=== PATIENT | female | born 1940 | race African-American/Black ===

== ENCOUNTER 2017-03-29 12:09 | Outpatient (CLI) | payer MEDICARE, MEDICAID ==
[~2017-03-29 12:09] MED LIST: Iopamidol 370 76% 100 ML VIAL ONE
[2017-03-29 12:35] LABS: Estimated GFR-MDRD - POC Greater than 90
--- NOTE | 2017-03-29 14:02 | CT ---
CT THORAX WITH IV CONTRAST: 03/29/2017 HISTORY: Lung cancer, post chemotherapy and radiation. Follow-up evaluation. COMPARISON: 06/07/[address] examination from 09/07/2016. FINDINGS: There has been interval placement of a right subclavian Mediport catheter, with the tip in the distal SVC. Vascular calcification is seen in the coronary arteries and, to a lesser extent, involving the thorac ic and visualized upper abdominal aorta. There is no evidence of lymphadenopathy. There has been interval decrease in size of the left upper lobe mass with previous measurement on PET CT examination 4 cm x 3.6 cm, and on today's examination this measures 2.2 cm x 1.4 cm. There is co nsolidation in the region of the lingula, but the degree of this consolidation has improved from prio r PET CT examination. No additional pulmonary nodule or mass is seen. Mild emphysematous changes are seen within the lungs, predominantly in the upper lobes. The previously noted mildly enlarged prevascular space lymph node has diminished in size, previously measuring 14 mm in greatest dimension, and on today's examination measures 6 mm. The previously desc ribed enlarged left paratracheal lymph node measuring 1.6 cm on the prior exam now measures approxima tely 9 mm in maximal dimensions. Again, no enlarged lymph nodes are seen on this exam. The visualized upper abdomen demonstrates no enlarged lymph nodes. There is stable mild thickening o f each adrenal gland, probably related to adrenal hyperplasia. Degenerative changes are seen in the spine with remote anterior right-sided rib fractures again prese nt. No other interval change. IMPRESSION: 1. Interval decrease in size of left upper lobe mass, likely related to interval treatment. Consoli dation in the region of the lingula has also improved. Linear scarring is now seen within the left u pper lobe. 2. No new pulmonary nodule or mass is seen in the lungs bilaterally. 3. No evidence of lymphadenopathy, with decrease in size of mediastinal lymphadenopathy. 4. Chronic obstructive pulmonary disease. POS: [facility]
== END 2017-03-29 12:10 | disposition home or self-care (01) ==
LOC: CT 12:09
PROVIDERS: ATTEND Radiology Radiation Oncology
DX: C34.12 Malignant neoplasm of upper lobe, left bronchus or lung (principal); J44.9 Chronic obstructive pulmonary disease, unspecified
CPT/HCPCS: 71260; 82565

== ENCOUNTER 2019-05-04 10:11 | Outpatient (CLI) | payer MEDICARE ==
--- NOTE | 2019-05-04 14:06 | PET ---
PET CT: HISTORY: A 78-year-old female with malignant neoplasm of upper lobe, left bronchus, or lung. Exam requested f or restaging and subsequent treatment. The patient's last chemotherapy was on 11/29/2016. There is a lso a history of a new mass in the upper quadrant of the right breast. COMPARISON: PET CT of 09/07/2016. CORRELATION: CT chest of 03/29/2017. FINDINGS: There is a 3.5 cm peripheral right upper lobe lung mass with increased FDG localization and an SUV of 12. There are multiple hypermetabolic lymph nodes including the right supraclavicular (SUV 9.7), other ri ght-sided cervical lymph nodes (SUV 8.3), right axillary lymph nodes (SUV 14.1), left superior medias tinum (SUV 5.2), and right paratracheal lymph nodes (SUV 11.3). No hypermetabolic left pulmonary nodule, liver, adrenal, or skeletal lesions are seen. There is physiologic activity in the GI and tracts, heart, and the visualized portions of the brai n. The CT scan used for attenuation correction demonstrates no evidence of pleural effusions or ascites. There is thickening of the skin of the right breast. There is colonic diverticulosis and fibroid u terus. IMPRESSION: Findings are consistent with metastatic disease. POS: [facility]
== END 2019-05-04 10:12 | disposition home or self-care (01) ==
LOC: PET 10:11
PROVIDERS: ATTEND Internal Medicine Medical Oncology
DX: C34.12 Malignant neoplasm of upper lobe, left bronchus or lung (principal)
CPT/HCPCS: 78815; A9552

== ENCOUNTER 2019-05-21 09:17 | Outpatient (CLI) | payer MEDICARE, MEDICAID ==
--- NOTE | 2019-05-21 10:35 | MMO ---
Bilateral MAMMO Bilat Diag [facility]. CLINICAL HISTORY: Patient is 78 years old and is seen for diagnostic exam. The patient has no family history of breast cancer. The patient has a history of right lung cancer in 2017 and is post chemoradiation therapy. VIEWS: The views performed were: bilateral craniocaudal with tomosynthesis; bilateral mediolateral oblique with tomosynthesis; bilateral mediolateral with tomosynthesis; and right mediolateral oblique. This study has been interpreted with the assistance of computer-aided detection. MAMMOGRAM FINDINGS: The breasts are heterogeneously dense, which could obscure a lesion on mammography. There is right skin thickening and relatively increased density on the right compared to the left. this maybe due to XRT but Breast malignancy cannot be excluded since there are no priors for comparison. Punch biopsy of the skin would be helpful. Enlarged lymph nodes are seen in the right axilla. US guided biopsy is recommended. In the left breast, there are no suspicious masses, calcifications or areas of architectural distortion. IMPRESSION: FINDING IN THE RIGHT BREAST IS SUSPICIOUS. BIOPSY IS RECOMMENDED. THE RESULTS OF THIS EXAM WERE SENT TO THE PATIENT. ACR BI-RADS Category 4 - Suspicious abnormality - biopsy should be considered D/W pt and grandaughter in person @ 10:30 am MAMMOGRAPHY NOTE: 1. A negative mammogram report should not delay a biopsy if a dominant of clinically suspicious mass is present. 2. Approximately 10% to 15% of breast cancers are not detected by mammography. 3. Adenosis and dense breasts may obscure an underlying neoplasm. Reported by: ANNABEL GLOVER MD Electonically Signed: [id number]
--- NOTE | 2019-05-21 10:51 | ULT ---
ULTRASOUND SOFT TISSUE OTHER: (RIGHT AXILLA) FINDINGS: Correlation was made with mammograms of same date. Sonographic evaluation of the right axilla demonstrates multiple enlarged lymph nodes, the largest me asuring about 2.2 cm. IMPRESSION: BIRADS category 4 - suspicious abnormality. Ultrasound-guided biopsy is recommended. Discussed in person with the patient and her granddaughter at 10:30 a.m. CODE CR POS: OFF
== END 2019-05-21 09:18 | disposition home or self-care (01) ==
LOC: BICMAMMO 09:17
PROVIDERS: ATTEND Internal Medicine Medical Oncology
DX: N63.11 Unspecified lump in the right breast, upper outer quadrant (principal)
CPT/HCPCS: 76999; 77066; G0279

== ENCOUNTER 2019-05-23 08:19 | Day surgery (SDC) | payer MEDICARE, MEDICAID ==
[2019-05-22 11:04] VITALS: BMI 29.8
[2019-05-23 08:33] LABS: #Eosinphils 0.2 thou/uL (0.0-0.7); #Lymphocytes 1.6 thou/uL (1.20-3.40); #Monocytes 0.5 thou/uL (0.11-0.59); #Neutrophils 3.7 thou/uL (1.40-6.50); %Basophils 0.2 % (0.0-1.0); %Eosinophils 3.2 % (0.0-10.0); %Lymphocytes 26.3 % (21.0-51.0); %Monocytes 8.6 % (0.0-10.0); %Neutrophils 61.6 % (42.0-75.0); Hemoglobin 12.3 g/dL (12.0-16.0); Mean Corpuscular HGB CONC 34.4 g/dL (32.0-36.0); Mean Corpuscular Hemoglobin 34.1 pg (27.0-31.0); Mean Corpuscular Volume 99.3 fL (78.0-98.0); Mean Platelet Volume 6.3 fL (7.4-10.4); Platelet Count 268 thou/uL (130-400); RBC Distribution Width 12.2 % (11.5-14.5)
[2019-05-23 08:38] LABS: PTT 29.3 SEC (22.9-36.1); Prothrombin Time 12.8 SEC (12.0-14.7)
[2019-05-23] MEDS ORDERED: FLU VACC TS2019-20(65YR UP)/PF 180 MCG/0.5 ML SYRINGE IM ONE (09:00)
[2019-05-23] MEDS ORDERED: Sodium Bicarbonate 2.5 MEQ/5 ML VIAL ONE (09:33)
[2019-05-23] MEDS ORDERED: Fentanyl 100 MCG/2 ML VIAL ONE (09:34)
[2019-05-23] MEDS ORDERED: Midazolam HCl 2 mg/2 ml Vial ONE (09:34)
[2019-05-23 10:49] VITALS: BP 137/87; TEMP 98.8
--- NOTE | 2019-05-23 12:00 | RAD ---
Chest 2 views inspiratory expiratory HISTORY: Right lung mass. Biopsy. FINDINGS: Lungs remain well-inflated. Right lung mass and patchy opacity throughout the left lower lo be are stable. Right subclavian Mediport remains in place. IMPRESSION: No evidence of postbiopsy pneumothorax. Patient has performed well clinically and will be discharged.
--- NOTE | 2019-05-23 12:02 | RAD ---
Chest 2 views inspiratory expiratory HISTORY: Right lung mass. Biopsy. FINDINGS: Cardiac silhouette and pulmonary vasculature are unremarkable. Right lung mass and parenchy mal opacity at the left base are stable. Mediastinum is midline with aortic calcification and a right subclavian Port-A-Cath. Lungs are well-inflated. IMPRESSION: No evidence of postbiopsy pneumothorax.
--- NOTE | 2019-05-23 15:24 | CT ---
CT-guided biopsy right upper lobe lung mass. Conscious sedation: At least 30 minutes spent with the patient for conscious sedation. HISTORY: Lung cancer. FINDINGS: After explaining the procedure and answering all questions, limited CT of the chest was per formed. Right upper lobe mass confirmed. Images also partially show fluid around the right subclavian Mediport device. The oval well-circumscribed fluid collection measures up to 4.[address] diameter on the axial images. Sterile technique, buffered local anesthesia, conscious sedation, CT guidance, and a right anterolate ral approach were used to carefully advance the tip of a 19-gauge trocar needle through the posterior margin of the right upper lobe mass, carefully using the pleural abutment of the mass durin g the approach. A total of 5 20-gauge core biopsy specimens were obtained and submitted to Dr. Carrillo from pathology o confirmed specimen adequacy. Needle was removed with no evidence of pneumothorax. Patient tolerated the procedure well and was eventually dismissed in good condition. IMPRESSION: Technically successful CT-guided right upper lobe mass biopsy. Pathology is pending. Tense large fluid collection surrounding the hub of the right subclavian Mediport.
== END 2019-05-23 12:55 | disposition home or self-care (01) ==
LOC: CT 08:19
PROVIDERS: ATTEND Internal Medicine Medical Oncology
PROC: 0BBC3ZX Excision of Right Upper Lung Lobe, Percutaneous Approach, Diagnostic (ICD-10-PCS; principal; 2019-05-23)
DX: C34.11 Malignant neoplasm of upper lobe, right bronchus or lung (principal); F17.210 Nicotine dependence, cigarettes, uncomplicated
CPT/HCPCS: 32405; 36415; 71045; 77012; 85025; 85610; 85730; 88305; 88333; 88334; 88341; 88342; J2250; J3010

== ENCOUNTER 2019-06-26 12:13 | Day surgery (SDC) | payer MEDICARE, MEDICAID ==
[~2019-06-26 12:13] MED LIST changes: -Iopamidol 370 76% 100 ML VIAL ONE; +Pembrolizumab 200 MG in Sodium Chloride 0.9% 250 ML 250 ML IV SCH
[2019-06-26] MEDS ORDERED: Sodium Chloride 0.9% 20 ML ONE (12:58)
== END 2019-06-26 14:47 | disposition home or self-care (01) ==
LOC: ONC/OP 12:13
PROVIDERS: ATTEND Internal Medicine Medical Oncology
DX: Z51.12 Encounter for antineoplastic immunotherapy (principal); C34.12 Malignant neoplasm of upper lobe, left bronchus or lung
CPT/HCPCS: 96413; J7050; J9271

== ENCOUNTER 2019-07-17 10:27 | Outpatient (CLI) | payer MEDICARE, MEDICAID ==
--- NOTE | 2019-07-17 10:46 | RAD ---
EXAM: Chest PA and lateral: HISTORY: Lung cancer. COMPARISON: 11/10/2016 FINDINGS: Heart: Upper normal cardiac silhouette. Aorta: Atherosclerosis and elongation of the aorta Pulmonary vessels: Slightly prominent pulmonary vessels appear Costophrenic angles: Costophrenic angles are clear. Lungs: Hyperinflation. Chronic changes in the left lower lobe. Masslike opacity in the right midlung. Pneumothorax: No pneumothorax Osseous structures: No osseous abnormalities IMPRESSION: 1. COPD 2. Right upper lobe mass. No pneumothorax.
== END 2019-07-17 10:28 | disposition home or self-care (01) ==
LOC: BICRAD 10:27
PROVIDERS: ATTEND Nurse Practitioner Family
DX: C34.12 Malignant neoplasm of upper lobe, left bronchus or lung (principal); J44.9 Chronic obstructive pulmonary disease, unspecified
CPT/HCPCS: 71046

== ENCOUNTER 2019-07-24 10:44 | Day surgery (SDC) | payer MEDICARE, MEDICAID ==
[2019-07-24] MEDS ORDERED: Sodium Chloride 0.9% 20 ML ONE (11:19)
[2019-07-24 12:44] VITALS: BP 129/67; TEMP 98.5
== END 2019-07-24 13:19 | disposition home or self-care (01) ==
LOC: ONC/OP 10:44
PROVIDERS: ATTEND Internal Medicine Hematology & Oncology
DX: Z51.12 Encounter for antineoplastic immunotherapy (principal); C34.12 Malignant neoplasm of upper lobe, left bronchus or lung
CPT/HCPCS: 96413; J7050; J9271

== ENCOUNTER 2019-08-22 07:18 | Day surgery (SDC) | payer MEDICARE, MEDICAID ==
[2019-08-22] MEDS ORDERED: Sodium Chloride 0.9% 20 ML ONE (08:20)
[2019-08-22 08:26] VITALS: BP 128/73; TEMP 98.2
== END 2019-08-22 10:20 | disposition home or self-care (01) ==
LOC: ONC/OP 07:18
PROVIDERS: ATTEND Internal Medicine Hematology & Oncology
DX: Z51.12 Encounter for antineoplastic immunotherapy (principal); C34.12 Malignant neoplasm of upper lobe, left bronchus or lung
CPT/HCPCS: 96413; J7050; J9271

== ENCOUNTER 2019-09-11 10:55 | Day surgery (SDC) | payer MEDICARE, MEDICAID ==
[2019-09-11 13:06] VITALS: BP 127/72; TEMP 98
== END 2019-09-11 13:09 | disposition home or self-care (01) ==
LOC: ONC/OP 10:55
PROVIDERS: ATTEND Internal Medicine Medical Oncology
DX: Z51.12 Encounter for antineoplastic immunotherapy (principal); C34.12 Malignant neoplasm of upper lobe, left bronchus or lung
CPT/HCPCS: 80053; 82248; 83615; 84100; 84436; 84443; 84550; 96413; J7050; J9271

== ENCOUNTER 2019-09-14 12:12 | Outpatient (CLI) | payer MEDICARE, MEDICAID ==
[~2019-09-14 12:12] MED LIST changes: +Iopamidol-370 76% 500 ML 1 ML ONE; -Pembrolizumab 200 MG in Sodium Chloride 0.9% 250 ML 250 ML IV SCH
--- NOTE | 2019-09-14 17:53 | CT ---
EXAM: CHEST CT SCAN WITH IV CONTRAST: 09/14/19 HISTORY: Lung cancer. COMPARISON: PET scan 05/04/19. FINDINGS: The previously noted 2.9 x 3.5 cm diameter mass in the right upper lobe adjacent to the minor fissure has decreased in size and approximates 1.8 x 2.7 cm in size with some associated linear scarring or subsegmental atelectasis. A previously noted area of increased density involving the posterior major fissure between the right middle lobe and right lower lobe is stable. In the left upper lobe, there i s progression in size of patchy somewhat pleural based parenchymal process extending from the anterol ateral chest wall towards the hilum. This mass previously measured approximately 1.6 x 2.6 cm and now measures approximately 2.6 x 3.4 cm. The previously noted 0.8 cm pleural based nodule in the left up per lobe which measured 0.8 cm in diameter now measures approximately 0.8 x 1.0 cm. There is a small left pleural effusion which is new. In addition, there is some patchy alveolar parenchymal changes in the left lower lobe, nonspecific including inflammatory or infectious or subsegmental atelectasis wh ich is also new from the prior study. No new mediastinal mass or adenopathy. No right sided pleural e ffusion. IMPRESSION: Decrease in the size of the previously noted right upper lobe mass. Increase in size of the left upper lobe mass which is poorly circumscribed and extends from the left chest wall towards the left hilum. Minimal increase in size in a pleural based nodule in the left upper lobe. Newly developed left pleural effusion and minimal alveolar appearing parenchymal changes in the left lower lobe, nonspecific. Other findings appear stable. POS: [facility]
== END 2019-09-14 12:13 | disposition home or self-care (01) ==
LOC: BICCT 12:12
PROVIDERS: ATTEND Internal Medicine Medical Oncology
DX: C34.12 Malignant neoplasm of upper lobe, left bronchus or lung (principal); R91.8 Other nonspecific abnormal finding of lung field; R91.1 Solitary pulmonary nodule; J90 Pleural effusion, not elsewhere classified
CPT/HCPCS: 71260; Q9967

== ENCOUNTER 2019-10-02 14:07 | Day surgery (SDC) | payer MEDICARE, MEDICAID ==
[~2019-10-02 14:07] MED LIST changes: -Iopamidol-370 76% 500 ML 1 ML ONE; +Pembrolizumab 200 MG in Sodium Chloride 0.9% 250 ML 250 ML IV SCH
== END 2019-10-02 15:06 | disposition home or self-care (01) ==
LOC: ONC/OP 14:07
PROVIDERS: ATTEND Internal Medicine Medical Oncology
DX: Z51.12 Encounter for antineoplastic immunotherapy (principal); C34.12 Malignant neoplasm of upper lobe, left bronchus or lung
CPT/HCPCS: 96413; J7050; J9271

== ENCOUNTER 2019-10-23 11:45 | Day surgery (SDC) | payer MEDICARE, MEDICAID ==
[2019-10-23] MEDS ORDERED: Sodium Chloride 0.9% 20 ML ONE (11:50)
[2019-10-23 12:51] VITALS: BP 149/74; TEMP 97.4
== END 2019-10-23 12:52 | disposition home or self-care (01) ==
LOC: ONC/OP 11:45
PROVIDERS: ATTEND Internal Medicine Medical Oncology
DX: Z51.12 Encounter for antineoplastic immunotherapy (principal); C34.12 Malignant neoplasm of upper lobe, left bronchus or lung
CPT/HCPCS: 96413; J7050; J9271

== ENCOUNTER 2019-11-15 11:43 | Day surgery (SDC) | payer MEDICARE, MEDICAID ==
[2019-11-15 12:36] VITALS: BP 160/84; TEMP 98.6
== END 2019-11-15 14:02 | disposition home or self-care (01) ==
LOC: ONC/OP 11:43
PROVIDERS: ATTEND Internal Medicine Medical Oncology
DX: Z51.12 Encounter for antineoplastic immunotherapy (principal); C34.12 Malignant neoplasm of upper lobe, left bronchus or lung
CPT/HCPCS: 96413; J7050; J9271

== ENCOUNTER 2019-12-04 09:58 | Outpatient (CLI) | payer MEDICARE, MEDICAID ==
--- NOTE | 2019-12-04 13:16 | CT ---
CT CHEST WITHOUT CONTRAST CLINICAL INDICATION: Follow-up lung cancer. History of prior chemotherapy and radiation. COMPARISON: CT thorax on 09/14/2019 and PET/CT scan exam on 05/04/2019 FINDINGS: Aorta: Prominent vascular calcifications are seen in the thoracic and visualized upper abdominal aort a with prominent vascular calcification seen in the coronary arteries. Lungs: As noted on prior recent examination, the right upper lobe mass has decreased in size with an irregular area of parenchymal density now present with adjacent linear densities. Findings could be related to post treatment changes and decrease in size of this mass is scarring. There are air bronch ograms now present in region of this masslike density. Previously described pleural-based nodular density along the right major fissure which appears to be in the region of the right middle lobe now demonstrates a more spiculated appearance as compared to prior exam. This measures 5 mm x 9 mm. Parenchymal opacity within the lingula is again seen and not significantly changed in size measuring 3.4 cm x 2.3 cm on today's exam with previous measurements of 3.4 cm x 2.6 cm. Differences in size are likely due to slice selection. However, this parenchymal density is more prominent when compared to PET/CT exam on 05/04/2019. The pleural-based nodular density along the superior aspect of the left major fissure is again seen and is smaller in size previously measuring 10 mm x 7 mm, and now me asures 8 mm x 6 mm. There has been interval development of a plaque-like nodular area of pleural thickening involving the posterior lower left lung zone with smaller area of plaque-like nodular thickening more posterior and inferior left lower lung zone. The nodular area of plaque-like thickening slightly more superior in the lower lung zone measures 5 cm craniocaudal x0.9 cm AP x1.7 cm transverse with the smaller area of nodular pleural thickening more inferiorly measuring approximately 0.8 cm in greatest transve rse dimension. There has been interval development of a masslike parenchymal density in the posterior inferior right lower lobe measuring 3.7 cm x 2.8 cm. Findings could be related to interval development of focal area of pneumonia as there are air bronchograms present. However, newly developed neoplastic process/ metastatic lesion is a possibility. Additional adjacent linear densities are also seen in this region. The previously seen small left pleural effusion has resolved. Patchy parenchymal densities left lung base have also resolved. Mediastinum: Nonspecific nonenlarged lymph nodes are seen. Largest pretracheal lymph node measures 1 cm in short axis dimension. Osseous structures: No suspicious lytic or sclerotic osseous lesion is identified. Degenerative bishop es are seen in the spine. Chest wall: There has been interval enlargement of a superior right breast mass compared to the recen t exam on 09/14/2019. This mass previously measured 2.1 cm x 1.3 cm and now measures 2.7 cm x 2.5 cm. Again noted is the skin thickening and increased infiltrative process involving the right breast. The re does appear to be less inflammatory stranding and edema involving the right breast compared to prior exam. Upper abdomen: Small hiatal hernia is present. No enlarged lymph nodes are seen in the upper abdomen. There is stable prominent thickening of each a drenal gland. IMPRESSION: 1. Interval development of masslike nodular areas of pleural thickening in the left lower lung zone w orrisome for metastatic process. 2. Interval development of a masslike area of parenchymal density right lower lobe. This could be rel ated to interval development of focal area of pneumonia. However, neoplastic process would be difficult to exclude. Follow-up evaluation is recommended to ensure resolution. Correlation for findi ngs of pneumonitis are also recommended. 3. Previously described opacities in the upper lobes bilaterally have not significantly changed when compared to prior study. Findings may be related to post treatment changes. Discrete masslike configuration is not seen, and findings are similar to prior study. 4. Pleural-based nodular densities along each major fissure are again seen each of which does appear slightly smaller in size; although, the nodular pleural-based density along the inferior right major fissure has a more spiculated appearance. 5. Interval enlargement of superior right breast mass. 6. Improvement in inflammatory changes and edema involving the right breast. Persistent skin thickeni ng right breast is again seen. The prominent right axillary lymph nodes are also slightly smaller in size.
== END 2019-12-04 09:59 | disposition home or self-care (01) ==
LOC: BICCT 09:58
PROVIDERS: ATTEND Internal Medicine Medical Oncology
DX: C34.12 Malignant neoplasm of upper lobe, left bronchus or lung (principal); J98.4 Other disorders of lung; R91.8 Other nonspecific abnormal finding of lung field; N63.10 Unspecified lump in the right breast, unspecified quadrant; N64.59 Other signs and symptoms in breast
CPT/HCPCS: 71250; 80053; 82248; 83615; 84100; 84436; 84443; 84550

== ENCOUNTER 2020-12-06 01:10 | Inpatient (IN) | payer MEDICARE, MEDICAID ==
[2020-12-06] MEDS ORDERED: Acetaminophen 650 MG Suppository PR PRN (08:11)
[2020-12-06] MEDS ORDERED: Ondansetron ODT 4 MG TAB PO PRN (08:11)
[2020-12-06] MEDS ORDERED: CEFEPIME HCL IN DEXTROSE 5 % 1 GM/50 ML BAG IVPB SCH (09:00)
[2020-12-06] MEDS: Cefepime 2 GM in Sodium Chloride 0.9% 100 ML IVPB SCH ×2 (09:52→20:29)
[2020-12-06 10:00] LABS: Anion Gap 12 mmol/L (10-20); BUN (Urea Nitrogen) 22 mg/dL (9.8-20.1); Calc. Creatinine Clearance 0 mL/min (70-130); Calcium 7.6 mg/dL (7.8-10.44); Carbon Dioxide 20 mmol/L (23-31); Chloride 112 mmol/L (98-107); Glucose 103 mg/dL (83-110); Potassium 3.9 mmol/L (3.5-5.1); Sodium 140 mmol/L (136-145)
[2020-12-06 10:01] LABS: Hemoglobin 8.1 g/dL (12.0-16.0); Mean Corpuscular HGB CONC 31.3 g/dL (32.0-36.0); Mean Corpuscular Hemoglobin 29.1 pg (27.0-31.0); Mean Corpuscular Volume 93.1 fL (78.0-98.0); Mean Platelet Volume 7.3 fL (7.4-10.4); Platelet Count 213 thou/uL (130-400); RBC Distribution Width 17.4 % (11.5-14.5); Red Blood Cell (RBC) Count 2.79 mill/uL (4.20-5.40); White Blood Cell (WBC) Count 17.7 thou/uL (4.8-10.8)
[2020-12-06 10:02] LABS: #Lymphocytes 0.8 thou/uL (1.20-3.40); %Basophils 0.2 % (0.0-1.0); %Eosinophils 0.2 % (0.0-10.0); %Lymphocytes 4.6 % (21.0-51.0)
[2020-12-06 10:03] LABS: #Monocytes 0.9 thou/uL (0.11-0.59); INR-International Normal Ratio 1.2; PTT 74.1 sec (22.9-36.1); Prothrombin Time 15.2 sec (12.0-14.7)
[2020-12-06] MEDS: Vancomycin 1.5 GRAM/300 ML BAG 1.5 GM in Premix Bag 1 BAG IVPB SCH ×2 (13:06→21:34)
[2020-12-06] MEDS: Pantoprazole 40 MG VIAL IVP SCH (20:30)
[2020-12-06] MEDS: Ondansetron PF 4 MG/2 ML Vial IVP PRN (20:45)
[2020-12-06 23:52] LABS: SARS-CoV-2 NAA Rapid Test Not Detected (NotDetected)
[2020-12-07] MEDS: Ondansetron PF 4 MG/2 ML Vial IVP PRN ×2 (08:08→21:48)
[2020-12-07] MEDS: Pantoprazole 40 MG VIAL IVP SCH ×2 (08:20→21:43)
[2020-12-07] MEDS: Cefepime 2 GM in Sodium Chloride 0.9% 100 ML IVPB SCH ×2 (08:20→21:43)
[2020-12-07 08:25] LABS: Hemoglobin 8.7 g/dL (12.0-16.0); Mean Corpuscular HGB CONC 31.9 g/dL (32.0-36.0); Mean Corpuscular Volume 93.9 fL (78.0-98.0); RBC Distribution Width 16.8 % (11.5-14.5); Red Blood Cell (RBC) Count 2.89 mill/uL (4.20-5.40)
[2020-12-07 08:35] LABS: Anion Gap 16 mmol/L (10-20); BUN (Urea Nitrogen) 25 mg/dL (9.8-20.1); Calc. Creatinine Clearance 45 mL/min (70-130); Calcium 8.1 mg/dL (7.8-10.44); Carbon Dioxide 18 mmol/L (23-31); Chloride 114 mmol/L (98-107); Glucose 83 mg/dL (83-110); Potassium 3.7 mmol/L (3.5-5.1); Sodium 144 mmol/L (136-145)
[2020-12-07] MEDS: Vancomycin 1.5 GRAM/300 ML BAG 1.5 GM in Premix Bag 1 BAG IVPB SCH ×2 (09:21→21:56)
[2020-12-07] MEDS ORDERED: Fentanyl 100 MCG/2 ML VIAL ONE (10:21)
[2020-12-07] MEDS ORDERED: Lidocaine 1% PF 5 ML VIAL ONE (10:39)
[2020-12-07] MEDS ORDERED: PROPOFOL 200 MG/20 ML VIAL ONE (10:39)
[2020-12-07 11:03] LABS: Anisocytosis SLIGHT = 6-15 cells (100X) (0-5/hpf); Band 4 % (5-11); Lymphocytes 3 % (21-51); MDiff Complete? YES; Mean Platelet Volume 7.7 fL (7.4-10.4); Monocytes 3 % (0-10); Neutrophil 90 % (42-75); Platelet Count 226 thou/uL (130-400); Platelet Morphology Comment Appears Adequate; Polychromasia SLIGHT = 2-3 cells (100X) (0-2/hpf); Vacuoles SLIGHT; White Blood Cell (WBC) Count 23.5 thou/uL (4.8-10.8)
[2020-12-07] MEDS ORDERED: Promethazine HCl 25 MG/ML VIAL IM PRN (11:10)
[2020-12-07] MEDS ORDERED: Promethazine HCl 25 MG/ML VIAL IVPB PRN (11:10)
[2020-12-07] MEDS ORDERED: Ondansetron HCl/PF 4 MG/2 ML Vial IVP PRN (11:10)
[2020-12-07] MEDS: Acetaminophen 325 MG TAB PO PRN (21:46)
[2020-12-07 21:47] LABS: Vancomycin, Trough 47.5 ug/mL
[2020-12-07] MEDS ORDERED: Vancomycin HCl 500 MG in Sodium Chloride 0.9% 100 ML IVPB SCH (22:30)
[2020-12-08 04:01] LABS: #Monocytes 0.7 thou/uL (0.11-0.59); #Neutrophils 19.5 thou/uL (1.40-6.50); %Eosinophils 0.1 % (0.0-10.0); %Lymphocytes 4.6 % (21.0-51.0); %Monocytes 3.3 % (0.0-10.0); %Neutrophils 92.1 % (42.0-75.0); Hemoglobin 8.4 g/dL (12.0-16.0); Mean Corpuscular HGB CONC 32.4 g/dL (32.0-36.0); Mean Corpuscular Hemoglobin 30.6 pg (27.0-31.0); Mean Corpuscular Volume 94.6 fL (78.0-98.0); Mean Platelet Volume 7.5 fL (7.4-10.4); Platelet Count 213 thou/uL (130-400); Red Blood Cell (RBC) Count 2.74 mill/uL (4.20-5.40); White Blood Cell (WBC) Count 21.2 thou/uL (4.8-10.8)
[2020-12-08 04:23] LABS: Anion Gap 15 mmol/L (10-20); BUN (Urea Nitrogen) 27 mg/dL (9.8-20.1); Calc. Creatinine Clearance 41 mL/min (70-130); Calcium 8.1 mg/dL (7.8-10.44); Carbon Dioxide 16 mmol/L (23-31); Chloride 117 mmol/L (98-107); Glucose 74 mg/dL (83-110); Potassium 3.5 mmol/L (3.5-5.1); Sodium 144 mmol/L (136-145)
[2020-12-08] MEDS: Pantoprazole 40 MG VIAL IVP SCH ×2 (09:33→20:04)
[2020-12-08] MEDS: Cefepime 2 GM in Sodium Chloride 0.9% 100 ML IVPB SCH ×2 (09:33→20:04)
[2020-12-08] MEDS ORDERED: Sodium Bicarbonate 150 MEQ in Dextrose 5% in Water 1,000 ML IV SCH (10:00)
[2020-12-08] MEDS: Acetaminophen 325 MG TAB PO PRN (12:39)
[2020-12-09] MEDS: Acetaminophen 325 MG TAB PO PRN (03:11)
[2020-12-09] MEDS: Ondansetron PF 4 MG/2 ML Vial IVP PRN (03:17)
[2020-12-09 04:22] LABS: #Monocytes 0.8 thou/uL (0.11-0.59); %Basophils 0.1 % (0.0-1.0); %Eosinophils 0.1 % (0.0-10.0); %Lymphocytes 4.3 % (21.0-51.0); %Monocytes 3.4 % (0.0-10.0); %Neutrophils 92.1 % (42.0-75.0); Anion Gap 18 mmol/L (10-20); BUN (Urea Nitrogen) 29 mg/dL (9.8-20.1); Calc. Creatinine Clearance 42 mL/min (70-130); Calcium 8.4 mg/dL (7.8-10.44); Carbon Dioxide 14 mmol/L (23-31); Chloride 114 mmol/L (98-107); Glucose 84 mg/dL (83-110); Hemoglobin 9.7 g/dL (12.0-16.0); Mean Corpuscular HGB CONC 31.1 g/dL (32.0-36.0); Mean Corpuscular Hemoglobin 29.6 pg (27.0-31.0); Mean Corpuscular Volume 95.4 fL (78.0-98.0); Mean Platelet Volume 7.7 fL (7.4-10.4); Platelet Count 200 thou/uL (130-400); Potassium 3.2 mmol/L (3.5-5.1); RBC Distribution Width 16.7 % (11.5-14.5); Red Blood Cell (RBC) Count 3.28 mill/uL (4.20-5.40); Sodium 143 mmol/L (136-145); White Blood Cell (WBC) Count 23.8 thou/uL (4.8-10.8)
[2020-12-09] MEDS ORDERED: Potassium Chloride 20 MEQ TAB PO SCH (08:45)
[2020-12-09] MEDS: Cefepime 2 GM in Sodium Chloride 0.9% 100 ML IVPB SCH ×2 (09:19→20:06)
[2020-12-09] MEDS: Pantoprazole 40 MG VIAL IVP SCH ×2 (09:20→20:06)
[2020-12-09] MEDS: Sodium Bicarbonate 150 MEQ in Dextrose 5% in Water 1,000 ML IV SCH (09:21)
[2020-12-09 09:47] LABS: Vancomycin, Random 34.4 ug/mL (See Comment)
[2020-12-09] MEDS ORDERED: Vancomycin HCl 500 MG in Sodium Chloride 0.9% 100 ML IVPB SCH (11:00)
[2020-12-09] MEDS ORDERED: HYDROcodone/Acetaminophen 5/325 mg Tablet PO PRN (12:56)
[2020-12-09 13:41] VITALS: BMI 23.2
[2020-12-09] MEDS: Morphine 4 MG/ML VIAL SLOW IVP PRN ×2 (14:12→20:05)
[2020-12-10] MEDS: Morphine 4 MG/ML VIAL SLOW IVP PRN (03:34)
[2020-12-10] MEDS: Sodium Bicarbonate 150 MEQ in Dextrose 5% in Water 1,000 ML IV SCH (05:47)
[2020-12-10 05:55] LABS: Hemoglobin 8.9 g/dL (12.0-16.0); Hypochromia SLIGHT = 6-15 cells (100X) (0-5/hpf); Lymphocytes 19 % (21-51); MDiff Complete? YES; Mean Corpuscular HGB CONC 31.8 g/dL (32.0-36.0); Mean Corpuscular Hemoglobin 30.6 pg (27.0-31.0); Mean Corpuscular Volume 96.1 fL (78.0-98.0); Mean Platelet Volume 8.2 fL (7.4-10.4); Monocytes 4 % (0-10); Neutrophil 77 % (42-75); Platelet Count 192 thou/uL (130-400); Platelet Morphology Comment Appears Adequate; RBC Distribution Width 17.2 % (11.5-14.5); Red Blood Cell (RBC) Count 2.92 mill/uL (4.20-5.40); White Blood Cell (WBC) Count 24.5 thou/uL (4.8-10.8)
[2020-12-10 06:05] LABS: Anion Gap 21 mmol/L (10-20); BUN (Urea Nitrogen) 29 mg/dL (9.8-20.1); Calc. Creatinine Clearance 36 mL/min (70-130); Calcium 8.5 mg/dL (7.8-10.44); Carbon Dioxide 17 mmol/L (23-31); Chloride 114 mmol/L (98-107); Glucose 81 mg/dL (83-110); Magnesium 1.7 mg/dL (1.6-2.6); Potassium 3.1 mmol/L (3.5-5.1); Sodium 149 mmol/L (136-145)
[2020-12-10] MEDS: Cefepime 2 GM in Sodium Chloride 0.9% 100 ML IVPB SCH (09:10)
[2020-12-10] MEDS: Pantoprazole 40 MG VIAL IVP SCH (09:10)
[2020-12-10 10:12] LABS: Vancomycin, Random 25.1 ug/mL (See Comment)
[2020-12-11] MEDS: Morphine 4 MG/ML VIAL SLOW IVP PRN (07:04)
[2020-12-11 19:32] VITALS: BP 88/56; TEMP 97.5
== END 2020-12-11 18:29 | disposition hospice, home (50) | DRG 377 ==
LOC: SUATTDRO 01:10 → ERS 01:10 → IMCU/EMU 02:30 → 2NO 12-08 16:08 → T4-B 12-10 14:21
PROVIDERS: ADMIT Internal Medicine; ATTEND Internal Medicine
PROC: 30233N1 Transfusion of Nonautologous Red Blood Cells into Peripheral Vein, Percutaneous Approach (ICD-10-PCS; 2020-12-06)
PROC: 0DB98ZX Excision of Duodenum, Via Natural or Artificial Opening Endoscopic, Diagnostic (ICD-10-PCS; principal; 2020-12-07)
DX: K92.2 Gastrointestinal hemorrhage, unspecified (principal); I26.99 Other pulmonary embolism without acute cor pulmonale; A41.9 Sepsis, unspecified organism; J18.9 Pneumonia, unspecified organism; G93.41 Metabolic encephalopathy; C34.90 Malignant neoplasm of unspecified part of unspecified bronchus or lung; D62 Acute posthemorrhagic anemia; C79.81 Secondary malignant neoplasm of breast; C78.5 Secondary malignant neoplasm of large intestine and rectum; C79.89 Secondary malignant neoplasm of other specified sites; S21.101A Unspecified open wound of right front wall of thorax without penetration into thoracic cavity, initial encounter; Z66 Do not resuscitate; Z20.822 Contact with and (suspected) exposure to COVID-19; X58.XXXA Exposure to other specified factors, initial encounter
CPT/HCPCS: 36415; 36416; 36430; 80048; 80202; 83735; 85025; 85610; 85730; 86850; 86900; 86901; 88305; 88313; 88341; 88342; 93306; 99285; C9113; J0692; J2270; J2405; J2704; J3010; J3370; J3490; J7070; P9016; Q0162; U0002